=== PATIENT | female | born 2000 | race Caucasian/White ===

== ENCOUNTER → 2018-08-24 | Outpatient (CLI) | payer BC ==
[~2018-08-24] MED LIST: AMOXICILLIN PO
--- NOTE | 2018-08-24 14:31 | Diagnostic Imaging Report ---
INDICATION: Scoliosis. No prior studies are available for comparison. There is a mid to lower thoracic right convexity scoliotic curvature. This measures approximately 10 degrees. Very slight lumbar left convexity scoliotic curvature is also seen measuring 11 degrees. No vertebral body anomaly is identified. Vertebral body heights are maintained. IMPRESSION: Thoracolumbar scoliosis. Dictated by: Dictated on workstation # [id number]
== END ==
LOC: RAD 11:12
PROVIDERS: ATTEND Internal Medicine
DX: M41.85 Other forms of scoliosis, thoracolumbar region (principal)
CPT/HCPCS: 72082

== ENCOUNTER 2018-10-05 15:34 | Outpatient (RCR) | payer BC ==
[2018-09-24 14:26] VITALS: BP 109/75
[2018-09-24] MEDS: IRON SUCROSE 200 MG/10 ML (VENOFER) VIAL IV SCH (14:32)
[2018-09-24] MEDS: CATHETER FLUSH 10 ML SYR IV PRN (14:33)
--- NOTE | 2018-09-26 13:15 | NUR ---
Dr. Figueroa called back at this time, pt. now vomiting. new order for one time order zofran 4 mg iv at this time. resume Venofer on & dilute Venofer with 30 mls of saline.
[2018-09-26] MEDS: CATHETER FLUSH 10 ML SYR IV PRN ×2 (14:59→15:25)
[2018-09-26] MEDS: IRON SUCROSE 200 MG/10 ML (VENOFER) VIAL IV SCH (14:59)
--- NOTE | 2018-09-26 15:10 | NUR ---
pt. states complaints of feeling dizzy at this time. call into Dr. Figueroa at this time.
[2018-09-26 15:25] VITALS: BP 114/74
[2018-10-01] MEDS: CATHETER FLUSH 10 ML SYR IV PRN ×2 (14:50→15:58)
[2018-10-01] MEDS: NS IV SCH (14:50)
[2018-10-01] MEDS: IRON SUCROSE IV SCH (14:50)
[2018-10-01 16:00] VITALS: BP 120/83
[2018-10-03] MEDS: CATHETER FLUSH 10 ML SYR IV PRN ×2 (14:35→15:35)
[2018-10-03] MEDS: IRON SUCROSE IV SCH (14:36)
[2018-10-03] MEDS: NS IV SCH (14:36)
[2018-10-03 15:38] VITALS: BP 108/62
[~2018-10-05] VITALS: Ht 172.7 cm; Wt 63.0 kg
[2018-10-05 15:30] VITALS: BP 105/66
[~2018-10-05 15:34] MED LIST changes: +ONDANSETRON 4 MG/2 ML (SDV) Z0FRAN IVP ONE; +ONDANSETRON 4 MG/2 ML (SDV) Z0FRAN ONE
[2018-10-05] MEDS: IRON SUCROSE IV SCH (15:49)
[2018-10-05] MEDS: NS IV SCH (15:49)
--- NOTE | 2018-10-05 16:55 | NUR ---
INFUSION COMPLETED, PT DENIES S/S OF DISTRESS. IV TO LEFT AC REMOVED, TIP OF CATH INTACT. PT DISCHARGED AMBULATORY ACCOMPANIED BY MOTHER TO PRIVATE CAR.
== END 2018-12-23 | disposition home or self-care (01) ==
LOC: SDC 15:34
PROVIDERS: ATTEND Internal Medicine
DX: D50.9 Iron deficiency anemia, unspecified (principal)
CPT/HCPCS: 96365